=== PATIENT | female | born 1995 | race Caucasian/White ===

== ENCOUNTER 2019-11-13 07:56 | Inpatient (IN) ==
[2019-11-13] MEDS ORDERED: Famotidine 20 MG/2 ML VIAL IVP ONE (08:11)
[2019-11-13] MEDS ORDERED: Ringers Solution, Lactated 1,000 ML IVC ONE (08:11)
[2019-11-13] MEDS ORDERED: Metoclopramide 10 MG/2 ML VIAL IVP ONE (08:11)
[2019-11-13] MEDS ORDERED: Oxytocin 20 units/ LR 1000 mL 20 UNIT/1,000 ML BAG IVC ONE (08:11)
[2019-11-13] MEDS ORDERED: CeFAZolin 2,000 MG/50 ML BAG IVPB ONE (08:11)
[2019-11-13] MEDS ORDERED: Ringers Solution, Lactated 1,000 ML IVC SCH ×2 (08:15→16:43)
[2019-11-13] MEDS ORDERED: Oxytocin 20 units/ LR 1000 mL 20 UNIT/1,000 ML BAG IVC SCH ×2 (08:15→16:43)
[2019-11-13 09:39] LABS: Amphetamine Screen,Urine Negative ng/mL (Cutoff=1000); Barbiturate Screen,Urine Negative ng/mL (Cutoff=200); Benzodiazepines Screen,Urine Negative ng/mL (Cutoff=200); Cannabinoid Screen,Urine Negative ng/mL (Cutoff = 50); Cocaine Screen,Urine Negative ng/mL (Cutoff= 300); Opiate Screen,Urine Negative ng/mL (Cutoff=300); Phencyclidine Screen,Urine Negative ng/mL (Cutoff=25)
[2019-11-13 10:10] LABS: Basophils % 0.4 %; Eosinophils # 0.1 K/mcL (0.0-0.6); Eosinophils % 0.6 %; Hemoglobin 13.2 g/dL (11.5-15.4); Lymphocytes # 1.9 K/mcL (0.6-4.6); Lymphocytes % 18.1 %; Mean Corpuscular HGB Conc 33.8 g/dL (31.6-35.5); Mean Corpuscular Hemoglobin 29.6 pg (28.0-33.3); Mean Corpuscular Volume 87.4 fL (83.0-100.0); Mean Platelet Volume 12.7 fL (9.4-12.4); Monocytes # 0.9 K/mcL (0.0-1.3); Neutrophils # 7.6 K/mcL (1.6-8.9); Platelet Count 163 K/mcL (140-400); Red Blood Count 4.46 M/mcL (3.82-4.97); Red Cell Distribution Width 13.6 % (11.5-14.5); Segmented Neutrophils % 70.9 %; White Blood Count 10.7 K/mcL (4.3-11.1)
[2019-11-13] MEDS ORDERED: *HR* Morphine Sulfate/PF 10 MG/10 ML AMPUL ONE (11:15)
[2019-11-13] MEDS ORDERED: Ondansetron 4 MG/2 ML VIAL ONE (11:31)
[2019-11-13] MEDS ORDERED: Dexamethasone 4 MG/ML VIAL ONE (11:31)
[2019-11-13] MEDS ORDERED: *HR* Oxytocin 10 UNIT/ML VIAL IM ONE (11:48)
[2019-11-13] MEDS ORDERED: Acetaminophen IV 1,000 MG/100 ML INFUS..BTL ONE (11:49)
[2019-11-13] MEDS ORDERED: Ketorolac 30 MG/ML VIAL ONE (12:05)
[2019-11-13] MEDS ORDERED: Ibuprofen 400 MG TABLET PO PRN (12:08)
[2019-11-13] MEDS ORDERED: *HR* HYDROmorphone (PF) 1 MG/ML SYRINGE IVP PRN (12:08)
[2019-11-13] MEDS ORDERED: *HR* OxyCODONE/APAP 5/325 TABLET PO PRN ×2 (12:08→16:43)
[2019-11-13] MEDS ORDERED: Morphine Sulfate 2 MG/ML SYRINGE IVP PRN (12:08)
[2019-11-13] MEDS ORDERED: Sennosides 8.6 MG TABLET PO PRN (16:43)
[2019-11-13] MEDS ORDERED: Ondansetron 4 MG/2 ML VIAL IVP PRN (16:43)
[2019-11-13] MEDS ORDERED: Rho Immune Globulin 1,500 UNIT SYRINGE IM ONE (16:43)
[2019-11-13] MEDS ORDERED: Simethicone 80 MG TAB.CHEW PO PRN (16:43)
[2019-11-13] MEDS ORDERED: Metoclopramide 10 MG/2 ML VIAL IVP PRN (16:43)
[2019-11-13] MEDS: Ibuprofen 600 MG TABLET PO PRN (19:50)
[2019-11-14 06:36] LABS: Basophils % 0.3 %; Eosinophils % 0.3 %; Hematocrit 34.6 % (35.3-44.9); Immature Granulocytes % 1.3 % (0-4); Lymphocytes # 2.4 K/mcL (0.6-4.6); Lymphocytes % 18.4 %; Mean Corpuscular HGB Conc 33.2 g/dL (31.6-35.5); Mean Corpuscular Volume 87.4 fL (83.0-100.0); Mean Platelet Volume 11.8 fL (9.4-12.4); Monocytes # 1.4 K/mcL (0.0-1.3); Monocytes % 10.7 %; Neutrophils # 9.1 K/mcL (1.6-8.9); Platelet Count 156 K/mcL (140-400); Red Blood Count 3.96 M/mcL (3.82-4.97); Red Cell Distribution Width 13.5 % (11.5-14.5); White Blood Count 13.1 K/mcL (4.3-11.1)
[2019-11-14 06:43] LABS: Hemoglobin 11.5 g/dL (11.5-15.4)
[2019-11-14] MEDS: Prenatal Vit/FA 1 EACH TABLET PO SCH (07:55)
[2019-11-14] MEDS: Ibuprofen 600 MG TABLET PO PRN (07:55)
[2019-11-15] MEDS: Prenatal Vit/FA 1 EACH TABLET PO SCH (07:22)
[2019-11-15 08:22] VITALS: BP 124/79
== END 2019-11-15 13:40 | disposition home or self-care (01) | DRG 788 ==
LOC: 1NENULAB 07:56 → 1NENUOBS 14:46
PROVIDERS: ADMIT Student in an Organized Health Care Education/Training Program; ATTEND Student in an Organized Health Care Education/Training Program